=== PATIENT | male | born 1955 | race Caucasian/White ===

== ENCOUNTER → 2019-04-27 | Outpatient (CLI) | payer OTHER ==
--- NOTE | 2019-05-01 10:18 | PE ---
Nuclear medicine PET/CT HISTORY: Melanoma, subsequent Patient received 11.5 mCi F-18 FDG intravenously in delayed whole-body scanning performed, a localiza tion and attenuation correction CT scan were performed. No comparisons available. Head, Neck and chest: No evident hydrocephalus or hemorrhage. There is no evident cervical, supraclav icular, mediastinal, axillary, or hilar adenopathy. Coronary artery calcifications are present. No nicholas spicious hypermetabolic uptake. No evident lung mass. No pleural or pericardial effusion. 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 Proximal descending aorta also aneurysmal measuring 3.6 cm. ABDOMEN: Gallstones are present. No retroperitoneal adenopathy. No evident liver mass. No ascites. No suspicious hypermetabolic uptake. Left inguinal hernia contains fat. Diverticular changes associated with the sigmoid colon. Osseous structures are remarkable for abnormal increased attenuation within the medullary aspect of t he left femur, SUV only 1.7, may represent enchondroma, mild associated hypermetabolic uptake. IMPRESSION: Melanoma is not evident. Findings in the left femur as described are indeterminate. Corre late with plain film.
== END | disposition home or self-care (01) ==
LOC: RADPETMAIN 15:54
PROVIDERS: ATTEND Internal Medicine Hematology & Oncology
DX: C43.9 Malignant melanoma of skin, unspecified (principal)
CPT/HCPCS: 78816; A9552

== ENCOUNTER 2024-03-06 08:43 | Day surgery (SDC) | payer MEDICARE, OTHER ==
[2024-03-05 11:52] VITALS: BMI 28.5
[2024-03-06] MEDS: IV FLUID CONTINUATION 1,000 ML IV ONE (11:43)
[2024-03-06 11:52] VITALS: TEMP 97
[2024-03-06] MEDS: LACTATED RINGERS 1,000 ML IV SCH (11:53)
[2024-03-06] MEDS ORDERED: PROPOFOL 10 MG/ML 20 ML VIAL IV ONE (12:44)
[2024-03-06] MEDS ORDERED: ONDANSETRON 4 MG/2 ML VIAL ONE (12:44)
[2024-03-06] MEDS ORDERED: GLYCOPYRROLATE 0.2 MG/ML 2 ML VIAL ONE (12:44)
--- NOTE | 2024-03-06 13:07 | P.PCN ---
Date of Procedure: 03/06/24 Procedure(s) Performed: BRIEF HISTORY: Patient is a 69-year-old pleasant white male scheduled for an elective colonoscopy as a part of screening for colon cancer/positive Cologuard\ PROCEDURE PERFORMED: Colonoscopy. PREOPERATIVE DIAGNOSIS: Screening for colon cancer/positive Cologuard. IV sedation per Anesthesia. PROCEDURE: After informed consent was obtained, the patient, was brought into the endoscopy unit. IV sedation was administered by Anesthesia under continuous monitoring. Digital rectal examination was normal. Initially the Olympus CF-160 flexible video colonoscope was then inserted in the rectum, gradually advanced into the sigmoid colon and further advancement was not possible because of acute angulation in this area. The scope was removed and a pediatric colonoscopy was then introduced into the rectum and gradually advanced into the cecum with moderate severe difficulty. Careful examination was performed as the scope was gradually being withdrawn. Ileocecal valve and the appendiceal orifice were visualized and appeared normal. Prep was excellent. Mucosa of the cecum, asc ending colon, transverse colon, descending colon, sigmoid colon, and rectum appeared normal. Sigmoid diverticulosis. Retroflexion was performed in the rectum and small internal hemorrhoids were seen. The patient tolerated the procedure well. IMPRESSION: Normal-appearing colon from rectum to cecum with no evidence of colorectal neoplasia. Moderate sigmoid diverticulosis. Small internal hemorrhoids. RECOMMENDATIONS: Findings of this examination were discussed with the patient as well as his family. He was advised to have repeat screening colonoscopy in 10 years..
[2024-03-06 14:05] VITALS: BP 168/90; PULSE 62; RESP 20
== END 2024-03-06 14:10 | disposition home or self-care (01) ==
LOC: ORWHC2ENDO 08:43
PROVIDERS: ATTEND Internal Medicine Gastroenterology
DX: K57.30 Diverticulosis of large intestine without perforation or abscess without bleeding (principal); K64.8 Other hemorrhoids; F17.200 Nicotine dependence, unspecified, uncomplicated
CPT/HCPCS: 45378